=== PATIENT | female | born 1965 | race Caucasian/White ===

== ENCOUNTER 2019-10-06 12:10 | Emergency (ER) | payer OTHER ==
--- NOTE | 2019-10-06 13:38 | EDM.PDOC ---
ED HPI GENERAL MEDICAL PROBLEM - General Chief Complaint: Abdominal Pain Stated Complaint: LOWER ABDOMINAL PAIN Time Seen by Provider: 10/06/19 12:41 Source of Information: Reports: Patient, RN Notes Reviewed History Limitations: Reports: No Limitations - History of Present Illness INITIAL COMMENTS - FREE TEXT/NARRATIVE: Patient is a 54-year-old female who presents to the ED for the evaluation of some left lower groin pain. Patient states that this is been present for a few months, notes that it first started last December 2017. She notes that there is some mild pain, and at times very intense cramping sensations. Patient states that she is menopausal, but relates it to ovulation type pain. She states that the pain is so bad at times, that she has to double over to help relieve the pain. Patient notes that she has chronic low back pain as well, she is not having any chest pain or shortness of breath with this. She is not having any vaginal discharge, out of the norm for her, but states that her urine does smell a little bit more strong than it normally does, she is not complaining of any dysuria, frequency or urgency. Patient states that when she used the bathroom this morning, she wiped, and thought she felt a lump, around the size of a walnut, this was not painful or tender. She notes this was on the left side of her vagina. There is no bleeding, and states she is not having any diarrhea. She notes that her last good bowel movement was the day before yesterday, so 2 days ago. Patient states that she does have unprotected monogamous sex with her , and is not noticed any dyspareunia, but states that her told her that things felt tighter down there a few days ago. She has not seen her primary care provider for this. The patient does recount, that she fell a while back, and thought she may have burst of varicose vein on her left leg, and was wondering if it could not be caused from this trauma. Patient's provider is Anastasia Coronel. Treatments CONTRACTS PARALEGAL: Reports: Other (see below) Other Treatments CONTRACTS PARALEGAL: went to walk in and says she was turned away Left Groin Pain Score (Numeric/FACES): 4 - Related Data Allergies Allergy/AdvReac Type Severity Reaction Status Date / Time nitrofurantoin Allergy Mild Rash Verified 10/06/19 12:46 [From Macrobid] Sulfa (Sulfonamide Allergy Rash Verified 10/06/19 12:46 Antibiotics) spermacide Allergy Burning Uncoded 10/06/19 12:46 Past Medical History Cardiovascular History: Reports: Hypertension Respiratory History: Reports: Other (See Below) Other Respiratory History: seasonal allergies Gastrointestinal History: Reports: Chronic Constipation 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 ECONOMICS CONSULTANT History: Reports: Other (See Below) Other HEALTHCARE ECONOMICS CONSULTANT History: cone biopsy; LEEP surgery Psychiatric History: Reports: Depression - Past Surgical History Female Surgical History: Reports: LEEP, Other (See Below) (Cone biopsy) Social & Family History - Tobacco Use Smoking Status *Q: Never Smoker - Caffeine Use Caffeine Use: Reports: Soda - Recreational Drug Use Recreational Drug Use: No ED ROS GENERAL - Review of Systems Review Of Systems: See Below Constitutional: Denies: Fever, Chills Respiratory: Denies: Shortness of Breath Cardiovascular: Denies: Chest Pain GI/Abdominal: Denies: Abdominal Pain, Constipation, Diarrhea, Nausea, Vomiting : Reports: Other (strong smelling urine). Denies: Discharge, Dysuria, Frequency, Urgency Musculoskeletal: Reports: Back Pain (chronic low back pain), Leg Pain (left proximal leg pain/groin pain) Neurological: Denies: Numbness, Tingling ED EXAM, GI/ABD - Physical Exam Exam: See Below Exam Limited By: No Limitations General Appearance: Alert, WD/WN, No Apparent Distress Eyes: Bilateral: Normal Appearance Ears: Normal External Exam Nose: Normal Inspection Throat/Mouth: Normal Inspection, Normal Lips, Normal Teeth, Normal Gums, Normal Oropharynx, Normal Voice, No Airway Compromise Head: Atraumatic, Normocephalic Neck: Normal Inspection Respiratory/Chest: No Respiratory Distress, Lungs Clear, Normal Breath Sounds, No Accessory Muscle Use, Chest Non-Tender Cardiovascular: Normal Peripheral Pulses, Regular Rate, Rhythm, No Murmur GI/Abdominal Exam: Normal Bowel Sounds, Soft, Non-Tender, No Distention, No Mass (Female) Exam: Normal External Exam, Normal Bimanual Exam, Adnexal Tenderness (Left sided tenderness), Vaginal Discharge (normal physiologic in appearance). No: Cervix Motion Tenderness, Vaginal Bleeding Extremities: Normal Inspection, Normal Capillary Refill, Other (tenderness noted in Left groin/anterior hip) Neurological: Alert, Oriented, Normal Cognition, No Motor/Sensory Deficits Psychiatric: Normal Affect, Normal Mood Skin Exam: Warm, Dry, Intact, Normal Color, No Rash Course - Vital Signs Last Recorded V/S: Last Vital Signs Temp 98.0 F 10/06/19 12:51 Pulse 71 10/06/19 12:51 Resp 20 10/06/19 12:51 BP 150/91 H 10/06/19 12:51 Pulse Ox 94 L 10/06/19 12:51 - Orders/Labs/Meds Labs: Laboratory Tests 10/06/19 10/06/19 10/06/19 Range/Units 15:23 15:23 15:27 WBC 6.60 (3.98-10.04) K/mm3 RBC 4.41 (3.98-5.22) M/mm3 Hgb 13.4 (11.2-15.7) gm/dl Hct 43.2 (34.1-44.9) % MCV 98.0 H (79.4-94.8) fl MCH 30.4 (25.6-32.2) pg MCHC 31.0 L (32.2-35.5) g/dl RDW Std Deviation 47.4 H (36.4-46.3) fL Plt Count 337 (182-369) K/mm3 MPV 9.7 (9.4-12.3) fl Neut % (Auto) 60.3 (34.0-71.1) % Lymph % (Auto) 29.1 (19.3-51.7) % Kinney % (Auto) 7.7 (4.7-12.5) % Eos % (Auto) 2.3 (0.7-5.8) Baso % (Auto) 0.6 (0.1-1.2) % Neut # (Auto) 3.98 (1.56-6.13) K/mm3 Lymph # (Auto) 1.92 (1.18-3.74) K/mm3 Kinney # (Auto) 0.51 H (0.24-0.36) K/mm3 Eos # (Auto) 0.15 (0.04-0.36) K/mm3 Baso # (Auto) 0.04 (0.01-0.08) K/mm3 Sodium 141 (136-145) mEq/L Potassium 4.3 (3.5-5.1) mEq/L Chloride 103 (98-107) mEq/L Carbon Dioxide 28 (21-32) mEq/L Anion Gap 14.3 (5-15) BUN 15 (7-18) mg/dL Creatinine 0.9 (0.55-1.02) mg/dL Est Cr Clr Drug Dosing 66.12 mL/min Estimated GFR (MDRD) > 60 (>60) mL/min BUN/Creatinine Ratio 16.7 (14-18) Glucose 100 (74-106) mg/dL Calcium 9.1 (8.5-10.1) mg/dL Total Bilirubin 0.5 (0.2-1.0) mg/dL AST 16 (15-37) U/L ALT 29 (14-59) U/L Alkaline Phosphatase 68 (46-116) U/L Total Protein 8.3 H (6.4-8.2) g/dl Albumin 4.1 (3.4-5.0) g/dl Globulin 4.2 gm/dL Albumin/Globulin Ratio 1.0 (1-2) Urine Color Yellow (Yellow) Urine Appearance Clear (Clear) Urine pH 7.0 (5.0-8.0) Ur Specific [place] 1.025 (1.005-1.030) Urine Protein Negative (Negative) Urine Glucose (UA) Negative (Negative) Urine Ketones Negative (Negative) Urine Occult Blood Negative (Negative) Urine Nitrite Negative (Negative) Urine Bilirubin Negative (Negative) Urine Urobilinogen 0.2 (0.2-1.0) Ur Leukocyte Esterase Negative (Negative) Urine RBC 0-5 (0-5) /hpf Urine WBC 0-5 (0-5) /hpf Ur Squamous Epith Cells 5-10 H (0-5) /hpf Urine Bacteria Few (FEW) /hpf Urine Mucus Few (FEW) /hpf - Re-Assessments/Exams Free Text/Narrative Re-Assessment/Exam: 10/06/19 14:09 Patient presents to the ED for evaluation of her ongoing left groin/proximal leg pain. Have ordered ultrasound of the area to determine versus hernia/clot/ ovarian cyst at this time. Patient is not having any obvious pain at rest, but states it does worsen sometimes when she stands on her left leg. I will also order UA to UTI at this time. 10/06/19 15:15 Patient's ultrasound demonstrated no sign of a DVT in the left leg, the transvaginal ultrasound could not visualize ovaries, but the adnexa appear unremarkable and the uterus has a normal ultrasound appearance. Ordered CBC and CMP to make sure there is no sign of metabolic abnormality or bacterial infection. Etiology of the patient's complaint is still undetermined at this time. Departure - Departure Time of Disposition: 16:22 Disposition: Home, Self-Care 01 Condition: Fair Clinical Impression: Left groin pain - Discharge Information *PRESCRIPTION DRUG MONITORING PROGRAM REVIEWED*: No *COPY OF PRESCRIPTION DRUG MONITORING REPORT IN PATIENT EFE: No Instructions: Pain Without a Known Cause Referrals: Anastasia Coronel PA-C [Primary Care Provider] - Forms: ED Department Discharge Additional Instructions: You were evaluated in the ER today for your left lower groin pain. Laboratory evaluation and ultrasounds demonstrated no focal abnormalities. You are not suffering from a blood clot, or any other lower abdominal abnormalities. The ovaries were not greatly visualized on the ultrasound, so the possibility of an ovarian cyst cannot be ruled out at this time. Recommend that you follow-up with your regular care provider, for a possible outpatient abdominal pelvis CT with contrast for further evaluation of your left lower groin/abdominal pain. There were also no physical abnormalities noted on your pelvic exam at today's visit. If you should desire, an HEALTHCARE ECONOMICS CONSULTANT appointment, for further evaluation might be warranted. As for the pain, you can try 500 mg Tylenol or 600 mg ibuprofen every 6 hours as needed for further pain relief, do not exceed 4000 mg Tylenol or 3200 mg ibuprofen in a 24-hour time span. You may also try heat packs to the area to see if this does not provide further relief from the pain. Please return to the ER at any time if symptoms change or worsen. Sepsis Event Note - Evaluation Sepsis Screening Result: No Definite Risk - Focused Exam Vital Signs: Vital Signs Temp Pulse Resp BP Pulse Ox 10/06/19 12:51 98.0 F 71 20 150/91 H 94 L Date Exam was Performed: 10/06/19 Time Exam was Performed: 16:22
--- NOTE | 2019-10-06 14:56 | US ---
Left lower extremity deep venous ultrasound: Duplex and color Doppler imaging was obtained of the left common femoral, proximal greater saphenous, superficial femoral, popliteal, posterior tibial and peroneal veins. Right common femoral vein also was evaluated. Findings: Normal phasic flow, augmentation and compression is seen. Impression: 1. No evidence of deep venous thrombosis within the left lower extremity or within the right common femoral vein. Diagnostic code #1 This report was dictated in MDT
--- NOTE | 2019-10-06 14:56 | US ---
Pelvic ultrasound: Multiple real-time images were obtained transvaginally. Uterus is anteverted. No myometrial abnormality is appreciated. Endometrial thickness is 5 mm. Both right and left ovaries are not visualized on this exam. Adnexa appear within normal limits. Measurements: Uterine length: 5.3 cm, AP height 2.2 cm, transverse width 2.4 cm Impression: 1. Both ovaries not visualized. Adnexa appear unremarkable. 2. Uterus has a normal ultrasound appearance. Diagnostic code #1 This report was dictated in MDT
== END 2019-10-06 16:45 | disposition home or self-care (01) ==
LOC: JD.ED 12:10
DX: R10.32 Left lower quadrant pain (principal); I10 Essential (primary) hypertension; Z88.8 Allergy status to other drugs, medicaments and biological substances; Z88.2 Allergy status to sulfonamides
CPT/HCPCS: 36415; 76830; 76830-26; 80053; 81001; 85025; 93971-26-LT; 93971-LT; 99284-25

== ENCOUNTER 2020-12-14 10:28 | Emergency (ER) | payer OTHER ==
--- NOTE | 2020-12-14 11:28 | EDM.PDOC ---
ED HPI GENERAL MEDICAL PROBLEM - General Chief Complaint: Back Pain or Injury Stated Complaint: [facility] Time Seen by Provider: 12/14/20 10:31 Source of Information: Reports: Patient History Limitations: Reports: No Limitations - History of Present Illness INITIAL COMMENTS - FREE TEXT/NARRATIVE: 55-year-old female presents to the emergency department today by [facility] with complaints of low back pain. Patient states that she was flying home 5 days ago when she states she started to feel her low back "tighten up ". She states that it has progressively gotten worse to today when she has extreme difficulty ambulating from the kitchen back to bed and then has difficulty laying in the bed. She denies any previous surgeries or traumatic injuries to her back. She states about 5 years ago she had an issue where she twisted wrong and ended up in the emergency department for evaluation of back pain. She states she recently had surgery on her right ankle and contributes some of this back discomfort to ambulating using a walking device. She denies falling recently. Patient received fentanyl in route to the hospital. Back Pain Score (Numeric/FACES): 2 - Related Data Allergies Allergy/AdvReac Type Severity Reaction Status Date / Time nitrofurantoin Allergy Mild Rash Verified 12/14/20 10:39 [From Macrobid] Sulfa (Sulfonamide Allergy Rash Verified 12/14/20 10:39 Antibiotics) spermacide Allergy Burning Uncoded 10/06/19 12:46 Home Meds: Home Meds oxyCODONE HCl/Acetaminophen [Percocet 5-325 mg Tablet] 1 each PO Q6H PRN #10 tablet 12/14/20 [Rx] Past Medical History Cardiovascular History: Reports: Hypertension Respiratory History: Reports: Other (See Below) Other Respiratory History: seasonal allergies Gastrointestinal History: Reports: Chronic Constipation 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 ED EXAM,LOWER BACK PAIN/INJURY - Physical Exam Exam: See Below Exam Limited By: No Limitations General Appearance: Alert, WD/WN, No Apparent Distress Ears: Normal External Exam, Hearing Grossly Normal Nose: Normal Inspection Throat/Mouth: Normal Inspection, Normal Lips, Normal Voice, No Airway Compromise Head: Atraumatic Neck: Normal Inspection, Supple, Non-Tender, Full Range of Motion. No: Tender Lateral, Tender Midline Respiratory/Chest: No Respiratory Distress, No Accessory Muscle Use Cardiovascular: Normal Peripheral Pulses, Regular Rate, Rhythm GI/Abdominal: No Distention (Female) Exam: Deferred Rectal (Female) Exam: Deferred Back Exam: Normal Inspection, Full Range of Motion, Other (Pain is noted on the right lateral low back. There is no spinal or paraspinal tenderness. Pain is noted in the right piriformis area.). No: Muscle Spasm, Paraspinal Tenderness, Vertebral Tenderness Extremities: Normal Inspection, Pedal Edema (1+ pedal edema noted to bilateral lower extremities) Neurological: Alert, Normal Mood/Affect, Normal Gait, Oriented x 3 Psychiatric: Normal Affect, Normal Mood Skin Exam: Warm, Dry, Intact, Normal Color, No Rash Lymphatic: No Adenopathy Course - Vital Signs Text/Narrative:: Patient presents with low back pain that she states started about 5 days ago but has progressively gotten worse. She states she noticed it when flying home 5 days ago. She states that yesterday it became difficult to ambulate from the kitchen to her room and then lay down in her bed. She has no spinal tenderness noted. She has no paraspinal tenderness noted. Pain is noted on the right lateral low back. There is no spinal or paraspinal tenderness. Pain is noted in the right piriformis area. She states she has pain on both sides however it significantly worse on the right side. She states that her ankle surgery was on the right ankle. At the time of my assessment she states she has minimal low back pain as she received fentanyl in route. She also states she took 2 Percocet at approximately 930 this morning. She was able to sit up on the side of the bed and stand up with minimal discomfort. She is able to bear weight independently on each leg. She denies any shooting pain or tenderness down the back of her thighs. I have ordered for the patient to receive a x-ray of the lumbar spine. At this time I do not think that it is pain related to spinous process, I believe it is more muscular pain. Last Recorded V/S: Last Vital Signs Temp 98.3 F 12/14/20 10:36 Pulse 76 12/14/20 10:36 Resp 16 12/14/20 10:36 BP 162/76 H 12/14/20 10:36 Pulse Ox 97 12/14/20 10:36 - Orders/Labs/Meds Meds: Medications Discontinued Medications Generic Name Dose Route Start Last Admin Trade Name Freq PRN Reason Stop Dose Admin Ketorolac Tromethamine 30 mg 12/14/20 11:54 Ketorolac 30 Mg/Ml Sdv IVPUSH 12/14/20 11:55 ONETIME ONE Orphenadrine Citrate 100 mg 12/14/20 11:54 Orphenadrine 100 Mg Tab.Er PO 12/14/20 11:55 NOW STA - Re-Assessments/Exams Free Text/Narrative Re-Assessment/Exam: 12/14/20 11:45 Radiologist impression AP, lateral and coned-down lateral views centered to the lumbosacral junction: 1. Minimal disc space narrowing is noted posteriorly at the L5-S1. 2. 3 view lumbar spine study is otherwise unremarkable. Patient will be discharged home. 12/14/20 11:55 Pt is requesting pain meds prior to discharge. I have ordered Toradol IV and norflex. Departure - Departure Time of Disposition: 11:45 Disposition: Home, Self-Care 01 Condition: Good Clinical Impression: Back pain Qualifiers: Back pain location: low back pain Chronicity: acute Back pain laterality: bilateral Sciatica presence: without sciatica Qualified Code(s): M54.5 - Low back pain - Discharge Information Prescriptions: oxyCODONE HCl/Acetaminophen [Percocet 5-325 mg Tablet] 1 each PO Q6H PRN #10 tablet PRN Reason: Pain (Moderate 4-6) Instructions: Acute Back Pain, Adult, Pain Medicine Instructions, [id number] Referrals: Anastasia Coronel PA-C [Primary Care Provider] - Forms: ED Department Discharge Additional Instructions: You were seen in the emergency department today with complaints of low back pain that started about 5 days ago. In route to the hospital via the ambulance you did receive IV pain medication and he stated that your pain was significantly better while being treated in the emergency department. X-rays of your low back were completed and there was nothing acute appreciated per the radiologist arely sims. I will send a prescription to your pharmacy for Percocet you can take 1 tab every 6 hours as needed for more severe pain however for the next 48 hours I recommend that you alternate ibuprofen 600 mg with Tylenol 650 mg every 4 hours. I would recommend that you ice the affected area 30 minutes at a time every 3 hours while awake. You will likely start to feel better in about the next 48 h ours. Also recommend that if pain has not resolved, you follow-up with your primary care provider. Sepsis Event Note (ED) - Evaluation Sepsis Screening Result: No Definite Risk - Focused Exam Vital Signs: Vital Signs Temp Pulse Resp BP Pulse Ox 12/14/20 10:36 98.3 F 76 16 162/76 H 97
--- NOTE | 2020-12-14 11:34 | CR ---
Lumbar spine: AP, lateral and coned-down lateral views centered to the lumbosacral junction were obtained. Comparison: No prior lumbar spine imaging is available. Minimal disc space narrowing is seen posteriorly at L5-S1. Other disc spaces are maintained. Vertebral body heights are maintained. Pedicles are intact. Visualized transverse and spinous processes are intact. Sacroiliac joints appear within normal limits. Impression: 1. Minimal disc space narrowing is noted posteriorly at L5-S1. 2. Three-view lumbar spine study is otherwise unremarkable. Diagnostic code #2
[2020-12-14] MEDS ORDERED: Orphenadrine 100 MG Tab.ER PO STA (11:54)
[2020-12-14] MEDS ORDERED: Ketorolac 30 MG/ML SDV IVPUSH ONE (11:54)
== END 2020-12-14 12:29 | disposition home or self-care (01) ==
LOC: JD.ED 10:28
DX: M54.5 Low back pain (principal); I10 Essential (primary) hypertension; Z88.2 Allergy status to sulfonamides; Z88.8 Allergy status to other drugs, medicaments and biological substances
CPT/HCPCS: 72100; 72100-26; 96374; 99283; 99283-25; A9270-GY; J1885

== ENCOUNTER 2021-08-06 20:04 | Emergency (ER) | payer OTHER ==
[2021-08-06] MEDS ORDERED: Sodium Chloride 0.9% 10 ML Syringe FLUSH PRN (20:47)
[2021-08-06] MEDS ORDERED: Ondansetron 4 MG/2 ML SDV IVPUSH ONE (21:27)
[2021-08-06] MEDS ORDERED: Sodium Chloride 0.9% 1,000 ML IV STA (21:27)
[2021-08-06] MEDS ORDERED: cefTRIAXone 2 GM in Sodium Chloride 0.9% 100 ML IV ONE (21:48)
== END 2021-08-06 23:10 | disposition home or self-care (01) ==
LOC: JD.ED 20:04
DX: N39.0 Urinary tract infection, site not specified (principal); I10 Essential (primary) hypertension; Z88.1 Allergy status to other antibiotic agents; Z88.2 Allergy status to sulfonamides; Z88.8 Allergy status to other drugs, medicaments and biological substances
CPT/HCPCS: 36415; 80053; 81001; 85025; 87086; 87088; 87186; 96365; 96375; 99284; J0696; J2405; J7030

== ENCOUNTER 2024-09-10 09:41 | Day surgery (SDC) | payer OTHER ==
[~2024-09-10 09:41] MED LIST: Sodium Chloride 0.9% 10 ML Syringe FLUSH PRN; Sodium Chloride 0.9% 10 ML Syringe FLUSH SCH
[2024-09-10] MEDS: Lactated Ringers 1,000 ML IV SCH (10:25)
[2024-09-10] MEDS ORDERED: Propofol 200 MG/20 ML SDV ONE ×3 (10:51→11:29)
[2024-09-10] MEDS ORDERED: Ondansetron 4 MG/2 ML SDV ONE (10:51)
[2024-09-10] MEDS ORDERED: Lidocaine 1% 4 ML ONE (10:51)
== END 2024-09-10 12:46 | disposition home or self-care (01) ==
LOC: JD.SDS 09:41
PROVIDERS: ATTEND Surgery
DX: Z12.11 Encounter for screening for malignant neoplasm of colon (principal); K57.30 Diverticulosis of large intestine without perforation or abscess without bleeding; K64.8 Other hemorrhoids; I10 Essential (primary) hypertension; Z86.16 Personal history of COVID-19; Z79.899 Other long term (current) drug therapy; Z87.891 Personal history of nicotine dependence
CPT/HCPCS: 45378; J2405; J2704; J7120; 00812